=== PATIENT | male | born 1965 | race African-American/Black ===

== ENCOUNTER 2017-10-16 18:46 | Emergency (ER) | payer OTHER ==
--- OUTSIDE RECORDS SUMMARY | 2017-10-16 18:49 | XMS REPORT ---
:1965 Author Organization eClinicalWorks Care Team Providers Name Role Phone Peter Aden Provider Role Unavailable Allergies, Adverse Reactions, Alerts Substance Reaction Event Type NSAIDS hives Drug Allergy Problems Problem Type Condition Code Onset Dates Condition Status Assessment HTN (hypertension), benign I10 Active Problem BMI 45.0-49.9, adult Z68.42 Active Assessment Encounter for preventative adult Z00.01 Active health care exam with abnormal findings Problem Depression with anxiety F41.8 Active Problem Pain in right knee M25.561 Active Problem HTN (hypertension), benign I10 Active Problem GERD without esophagitis K21.9 Active Problem Constipation, unspecified K59.00 Active constipation type Problem Other chronic pain G89.29 Active Problem Tobacco use disorder F17.200 Active Assessment BMI 45.0-49.9, adult Z68.42 Active Assessment Other chronic pain G89.29 Active Assessment Depression with anxiety F41.8 Active Assessment Tobacco use disorder F17.200 Active Assessment GERD without esophagitis K21.9 Active Assessment Constipation, unspecified K59.00 Active constipation type Assessment Pain in right knee M25.561 Active Medications Medication Code Code Instructions Start End Date Status Dosage System Date Fluoxetine HCl ND 30910441886 20 MG Orally Active 1 capsule Once a day in the morning Nexium ND 49014118678 40 MG Orally Active 1 capsule Once a day Hydrocodone-Ac ND 59651051021 5-325 MG Orally September Active 1 tablet etaminophen Once a day as 2017 as needed needed for PAIN Latuda ND 65152120016 80 MG Orally Active 1 tablet Once a day with food Lactulose [facility] [address]-82 20 GM Orally Active 1 packet Once a day Lisinopril-Hyd ND 58238610373 20-12.5 MG Active 1 tablet rochlorothiazi Orally Twice a de day Results No Known Results Summary Purpose eClinicalWorks Submission
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
--- NOTE | 2017-10-16 19:49 | RAD REPORT ---
EXAM DESCRIPTION: RAD - Chest Pa And Lat (2 Views) - 10/16/2017 7:38 pm CLINICAL HISTORY: Trauma, chest pain COMPARISON: None. FINDINGS: The lungs are clear. The heart is normal in size. No displaced fractures. IMPRESSION: No acute or concerning finding suspected.
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
--- NOTE | 2017-10-16 21:19 | RAD REPORT ---
EXAM DESCRIPTION: MRI - C Spine Wo Cont CLINICAL HISTORY: Trauma, neck pain, radiculopathy COMPARISON: CT study 10/16/2017. FINDINGS: Examination is moderately degraded by motion artifact. Diminished T1 marrow signal is identified in the C3, C4 and C5 vertebral bodies. Mild elevated T2/IR signal is also seen within these vertebral bodies. There is evidence of subtle sclerosis on the CT ex amination performed earlier in these vertebral bodies as well. No acute fracture or subluxation is suspected. No traumatic marrow signal abnormality is observed. No prevertebral soft tissue swelling or fluid. No paraspinal mass or hematoma. Spondylosis with posterior disc/ osteophyte complexes noted, most prominent at C3-4 and C4-5 resultin g in central canal narrowing. IMPRESSION: Motion degraded study is submitted with no evidence of acute fracture or subluxation see n. Marrow signal abnormality as detailed involving this C3, C4 and C5 vertebral bodies with subtle scler osis noted on the recent CT scan at these levels. The findings could be related to underlying metabol ic conditions such as anemia. Blastic metastatic disease such as from prostate neoplasia is also in t he differential. Consider correlation with PSA levels. Moderate midcervical degenerative change with multilevel central canal narrowing present. Detail is d egraded by motion artifact.
[2017-10-16] MEDS ORDERED: HYDROCODONE/APAP 7.5/325 MG TAB ONE (21:46)
== END 2017-10-16 21:42 | disposition home or self-care (01) ==
LOC: ER 18:46
DX: S13.4XXA Sprain of ligaments of cervical spine, initial encounter (principal); V59.40XA Driver of pick-up truck or van injured in collision with unspecified motor vehicles in traffic accident, initial encounter; S20.219A Contusion of unspecified front wall of thorax, initial encounter; I10 Essential (primary) hypertension; F32.9 Major depressive disorder, single episode, unspecified; Z72.0 Tobacco use
CPT/HCPCS: 71046; 72125; 72141; 99285

== ENCOUNTER 2017-11-19 14:52 | Emergency (ER) | payer OTHER ==
[2017-11-19] MEDS ORDERED: ALBUTEROL 2.5 MG/3 ML NEB SOL ONE (15:37)
[2017-11-19] MEDS ORDERED: IPRATROPIUM BROM 0.5MG/2.5ML ONE (15:37)
--- NOTE | 2017-11-19 16:02 | RAD REPORT ---
EXAM DESCRIPTION: RAD - Chest Pa And Lat (2 Views) - 11/19/2017 3:37 pm CLINICAL HISTORY: Persistent cough, congestion, patient concern for TB COMPARISON: October 16 TECHNIQUE: PA and lateral views of the chest were obtained. FINDINGS: The lungs are slightly underinflated. Small granulomas are present. No focal infiltrate. I nterstitial markings are prominent. This is suspected to be baseline but could potentially mask a mata y early interstitial edema or infiltrate. Failure or volume overload are not suspected. Trachea is mi dline. Heart size is normal and central vasculature is within normal limits. No pleural effusion o r pneumothorax seen. No acute bony finding noted. No aortic abnormality. IMPRESSION: No peripheral mass or consolidation. Lung markings are prominent, accentuated by a slightly shallow inspiration. This could mask early int erstitial edema or infiltrate. No chest findings to suspect acute or prior TB.
--- NOTE | 2017-11-19 16:19 | ER ---
Nurse's Notes [facility] Name: Art Reid Age: 52 yrs Sex: Male : 1965 Arrival Date: 11/19/2017 Time: 14:53 Bed 11 Private MD: Diagnosis: Bronchitis, not specified as acute or chronic Presentation: 11/19 14:58 Presenting complaint: Patient states: I have had a cough, I smoke 3 cigarettes a day. ch cough has been there for 2 weeks. when I cough it hurts. I am worried I have TB. I get sweats some times. Transition of care: patient was not received from another setting of care. Onset of symptoms was November 05, 2017. Initial Sepsis Screen: Does the patient meet any 2 criteria? No. Patient's initial sepsis screen is negative. Does the patient have a suspected source of infection? No. Patient's initial sepsis screen is negative. Care prior to arrival: None. 14:58 Method Of Arrival: Ambulatory 14:58 Acuity: MIKE 5 Triage Assessment: 15:02 General: Appears in no apparent distress. uncomfortable, Behavior is cooperative, ch appropriate for age, anxious. Historical: - Allergies: 15:00 tolmetin sodium; ch - Home Meds: 15:00 Fluoxetine Oral [Active]; Lactulose Oral [Active]; Latuda 80 mg Oral tab 1 tab once ch daily [Active]; lisinopril-hydrochlorothiazide 20-12.5 mg Oral tab 1 tab once daily [Active]; 15:04 "i form 500mg twice a day for diabetes" [Active]; ch - PMHx: 15:00 Depression; Hypertension; 15:04 Diabetes - NIDDM; - PSHx: 15:00 abdominal surgery; - Immunization history:: Adult Immunizations up to date. - Social history:: Smoking status: Patient/guardian denies using tobacco. Screenin:13 Abuse screen: Denies threats or abuse. Denies injuries from another. Nutritional ed1 screening: No deficits noted. Tuberculosis screening: Never had TB. Possible symptoms: cough for more than 2 weeks, Risk factors: None Intervention for positive screen: ED Physician notified, no new orders received. Fall Risk None identified. Assessment: 15:13 General: Appears in no apparent distress. Behavior is calm, cooperative. Pain: Denies ed1 pain. Neuro: Level of Consciousness is awake, alert, obeys commands, Oriented to person, place, time, situation. Cardiovascular: Denies chest pain, Heart tones S1 S2 present. Respiratory: Reports cough that is productive, persistent pain with cough Airway is patent Respiratory effort is even, unlabored, Respiratory pattern is regular, symmetrical, Sputum is thick, clear Breath sounds are clear bilaterally. GI: No signs and/or symptoms were reported involving the gastrointestinal system. : No signs and/or symptoms were reported regarding the genitourinary system. EENT: No signs and/or symptoms were reported regarding the EENT system. Derm: Skin is intact, is healthy with good turgor, Skin is dry, Skin is normal, Skin temperature is warm. Musculoskeletal: Circulation, motion, and sensation intact. 15:13 Reassessment: I agree with assessment completed by CHERYLE Barrera . aa5 16:08 Reassessment: Patient appears in no apparent distress at this time. Patient and/or ed1 family updated on plan of care and expected duration. Pain level reassessed. Patient is alert, oriented x 3, equal unlabored respirations, skin warm/dry/pink. Patient states feeling better. Patient states symptoms have improved. Vital Signs: 15:00 BP 147 / 98; Pulse 74; Resp 16; Temp 97.4; Pulse Ox 98% on R/A; ch 15:03 Weight 133.81 kg; Height 5 ft. 7 in. (170.18 cm); ch 16:08 BP 138 / 87; Pulse 95; Resp 18; Pulse Ox 100% on R/A; Pain 2/10; ed1 15:03 Body Mass Index 46.20 (133.81 kg, 170.18 cm) ED Course: 14:53 Patient arrived in ED. sb2 14:59 Triage completed. ch 15:00 Arm band placed on left wrist. Patient placed in an exam room. ch 15:03 Malu Bianchi FNP-C is [facility]. kb 15:03 Oswaldo Bustillos MD is Attending Physician. kb 15:12 Holly Fournier LVN is Primary Nurse. ed1 15:13 Patient has correct armband on for positive identification. Call light in reach. ed1 15:28 Patient moved to radiology via wheelchair. jb2 15:29 Chest Pa And Lat (2 Views) XRAY In Process Unspecified. EDMS 15:32 X-ray completed. Patient tolerated procedure well. jb2 15:39 Patient moved back from radiology. jb2 16:09 Resting quietly. Awaiting disposition. ed1 16:25 No provider procedures requiring assistance completed. Patient did not have IV access ed1 during this emergency room visit. Administered Medications: 15:43 Drug: DuoNeb (3:1) (2.5 mg - 0.5 mg) 3 ml Route: Nebulizer; ed1 16:26 Follow up: Response: No adverse reaction; Marked relief of symptoms ed1 Outcome: 16:18 Discharge ordered by . marilyn 16:25 Discharged to home ambulatory. ed1 16:25 Condition: good 16:25 Discharge instructions given to patient, Instructed on discharge instructions, follow up and referral plans. medication usage, Demonstrated understanding of instructions, follow-up care, medications, Prescriptions given X 1. 16:26 Patient left the ED. ed1 Signatures: Dispatcher [employer] EDTN Malu Bianchi, LEAD SQL DEVELOPER-C LEAD SQL DEVELOPER-Gabriela Mathew, RN RN Boni Singh jb2 Mili Napoles, RN RN aa5 Holly Fournier, GOLF COURSE MECHANIC GOLF COURSE MECHANIC ed1 Jaye Donaldson sb2 Corrections: (The following items were deleted from the chart) 15:01 14:58 Presenting complaint: Patient states: I have had a cough, I smoke 3 cigaretts a ch day. cough has been there for 2 weeks ch
--- NOTE | 2017-11-19 16:19 | EDPHYS ---
Physician Documentation [facility] Name: Art Reid Age: 52 yrs Sex: Male : 1965 Arrival Date: 11/19/2017 Time: 14:53 Bed 11 Private MD: ED Physician Oswaldo Bustillos HPI: 11/19 15:13 This 52 yrs old Black Male presents to ER via Ambulatory with complaints of TB TEST. kb 15:13 The patient or guardian reports cough, that is intermittent, described as moderate, kb with productive sputum. Onset: The symptoms/episode began/occurred 3 week(s) ago. Severity of symptoms: At their worst the symptoms were moderate, in the emergency department the symptoms are unchanged. Modifying factors: The symptoms are alleviated by nothing, the symptoms are aggravated by nothing. Associated signs and symptoms: Pertinent positives: fever, Pertinent negatives: chest pain, diarrhea, ear ache, nausea, rhinorrhea, sore throat, vomiting. The patient has not experienced similar symptoms in the past. The patient has not recently seen a physician. Pt states he has had a cough for a couple of weeks. States cough is worse when he lays on his right side. States he saw something on the news this morning that said if he had a cough and sweats it was probably TB so he came to get checked for that. States he has had intermittent fever and sweats. Reports he was probably around someone that had TB and that's how he was exposed, but he doesn't know if he was for sure because "they aren't going to tell you if they have it.". Historical: - Allergies: 15:00 tolmetin sodium; ch - Home Meds: 15:00 Fluoxetine Oral [Active]; Lactulose Oral [Active]; Latuda 80 mg Oral tab 1 tab once ch daily [Active]; lisinopril-hydrochlorothiazide 20-12.5 mg Oral tab 1 tab once daily [Active]; 15:04 "i form 500mg twice a day for diabetes" [Active]; ch - PMHx: 15:00 Depression; Hypertension; ch 15:04 Diabetes - NIDDM; ch - PSHx: 15:00 abdominal surgery; ch - Immunization history:: Adult Immunizations up to date. - Social history:: Smoking status: Patient/guardian denies using tobacco. ROS: 15:12 ENT: Negative for injury, pain, and discharge, Neck: Negative for injury, pain, and kb swelling, Cardiovascular: Negative for chest pain, palpitations, and edema, Abdomen/GI: Negative for abdominal pain, nausea, vomiting, diarrhea, and constipation, Back: Negative for injury and pain, : Negative for injury, bleeding, discharge, and swelling, MS/Extremity: Negative for injury and deformity, Skin: Negative for injury, rash, and discoloration, Neuro: Negative for headache, weakness, numbness, tingling, and seizure. 15:12 Constitutional: Positive for fever, Negative for body aches, chills, fatigue, malaise, poor PO intake, weight loss. 15:12 Respiratory: Positive for cough, with yellow sputum, Negative for dyspnea on exertion, hemoptysis, orthopnea, pleurisy, shortness of breath, sputum production, wheezing. Exam: 15:12 Constitutional: This is a well developed, well nourished patient who is awake, alert, kb and in no acute distress. Head/Face: Normocephalic, atraumatic. ENT: Nares patent. No nasal discharge, no septal abnormalities noted. Tympanic membranes are normal and external auditory canals are clear. Oropharynx with no redness, swelling, or masses, exudates, or evidence of obstruction, uvula midline. Mucous membranes moist. Neck: Trachea midline, no thyromegaly or masses palpated, and no cervical lymphadenopathy. Supple, full range of motion without nuchal rigidity, or vertebral point tenderness. No Meningismus. Chest/axilla: Normal chest wall appearance and motion. Nontender with no deformity. No lesions are appreciated. Cardiovascular: Regular rate and rhythm with a normal S1 and S2. No gallops, murmurs, or rubs. Normal PMI, no JVD. No pulse deficits. Abdomen/GI: Soft, non-tender, with normal bowel sounds. No distension or tympany. No guarding or rebound. No evidence of tenderness throughout. Back: No spinal tenderness. No costovertebral tenderness. Full range of motion. Skin: Warm, dry with normal turgor. Normal color with no rashes, no lesions, and no evidence of cellulitis. MS/ Extremity: Pulses equal, no cyanosis. Neurovascular intact. Full, normal range of motion. Neuro: Awake and alert, GCS 15, oriented to person, place, time, and situation. Cranial nerves II-XII grossly intact. Motor strength 5/5 in all extremities. Sensory grossly intact. Cerebellar exam normal. Normal gait. 15:12 Respiratory: the patient does not display signs of respiratory distress, Respirations: normal, Breath sounds: rhonchi, that are moderate, are heard in the right lower lobe and right posterior lower lobe. Vital Signs: 15:00 BP 147 / 98; Pulse 74; Resp 16; Temp 97.4; Pulse Ox 98% on R/A; ch 15:03 Weight 133.81 kg; Height 5 ft. 7 in. (170.18 cm); ch 16:08 BP 138 / 87; Pulse 95; Resp 18; Pulse Ox 100% on R/A; Pain 2/10; ed1 15:03 Body Mass Index 46.20 (133.81 kg, 170.18 cm) ch MDM: 15:04 Patient medically screened. kb 15:12 Data reviewed: vital signs, nurses notes. Data interpreted: Pulse oximetry: on room air kb is 98 %. Interpretation: normal. 16:03 Counseling: I had a detailed discussion with the patient and/or guardian regarding: the kb historical points, exam findings, and any diagnostic results supporting the discharge/admit diagnosis, radiology results, the need for outpatient follow up, a family practitioner, to return to the emergency department if symptoms worsen or persist or if there are any questions or concerns that arise at home. 11/19 15:04 Order name: Chest Pa And Lat (2 Views) XRAY; Complete Time: 16:03 kb Administered Medications: 15:43 Drug: DuoNeb (3:1) (2.5 mg - 0.5 mg) 3 ml Route: Nebulizer; ed1 16:26 Follow up: Response: No adverse reaction; Marked relief of symptoms ed1 Disposition: 22:33 Co-signature as Attending Physician, Oswaldo Bustillos MD I agree with the assessment and kdr plan of care. Disposition: 11/19/17 16:18 Discharged to Home. Impression: Bronchitis, not specified as acute or chronic. - Condition is Stable. - Discharge Instructions: Acute Bronchitis, [id number]. - Prescriptions for Albuterol Sulfate 90 mcg/actuation - inhale 1-2 puff by INHALATION route every 4-6 hours; 1 Inhaler. - Medication Reconciliation Form, Thank You Letter, Antibiotic Education, Prescription Opioid Use form. - Follow up: Emergency Department; When: As needed; Reason: Worsening of condition. Follow up: Private Physician; When: 2 - 3 days; Reason: Recheck today's complaints, Continuance of care, Re-evaluation by your physician. Signatures: Dispatcher [employer] EDMS Malu Bianchi, RUPERTO-C DIRECTOR [employer]-Gabriela Mathew, ASMITA RN Oswaldo Bustillos MD MD [facility] Holly Fournier LVN PROJECT LEADER ed1 Corrections: (The following items were deleted from the chart) 16:26 16:18 11/19/2017 16:18 Discharged to Home. Impression: Bronchitis, not specified as ed1 acute or chronic. Condition is Stable. Forms are Medication Reconciliation Form, Thank You Letter, Antibiotic Education, Prescription Opioid Use. Follow up: Emergency Department; When: As needed; Reason: Worsening of condition. Follow up: Private Physician; When: 2 - 3 days; Reason: Recheck today's complaints, Continuance of care, Re-evaluation by your physician. kb
== END 2017-11-19 16:26 | disposition home or self-care (01) ==
LOC: ER 14:52
DX: J40 Bronchitis, not specified as acute or chronic (principal); I10 Essential (primary) hypertension; E11.9 Type 2 diabetes mellitus without complications; F32.9 Major depressive disorder, single episode, unspecified; Z88.8 Allergy status to other drugs, medicaments and biological substances
CPT/HCPCS: 71046; 94640; 99284

== ENCOUNTER 2018-08-20 07:07 | Day surgery (SDC) | payer OTHER ==
--- OUTSIDE RECORDS SUMMARY | 2018-08-20 07:13 | XMS REPORT | Continuity of Care Document ---
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 HEMATOLOGY Hct 30.0 % 42.0 - 07/18 54.0 [facility] HEMATOLOGY RDW 12.6 % 11.5 - 07/18 14.5 [facility] HEMATOLOGY MCHC 33.0 g/dL 32.0 - 07/18 36.0 [facility] HEMATOLOGY MCV 85.4 fL 80.0 - 07/18 94.0 [facility] HEMATOLOGY MCH 28.2 pg 27.0 - 07/18 31.0 [facility] HEMATOLOGY Hgb 9.9 g/dL 14.0 - 07/18 [facility] HEM[facility]OLOGY WBC 7.9 K/CMM 3.7 - 10.4 07/18 [facility] HEMATOLOGY RBC 3.51 M/CMM 4.70 - 07/18 6. [facility] HEMATOLOGY Lymphocytes 1.9 K/CMM 1.0 - 5.5 07/18 /2014 [facility] HEMATOLOGY Eosinophils 0.1 K/CMM 0.0 - 0.5 07/18 [facility] HEMATOLOGY Monocytes 7.9 % 2.0 - 12.0 07/18 [facility] HEMATOLOGY Lymphocytes 24.0 % 20.0 - 07/18 40.0 [facility] HEMATOLOGY Segs-Bands # 5.2 K/CMM 1.5 - 8.1 07/18 [facility] HEMATOLOGY Monocytes # 0.6 K/CMM 0.0 - 0.8 07/18 [facility] HEMATOLOGY Segs 66.0 % 45.0 - 07/18 75.0 [facility] HEMATOLOGY Basophils 0.4 % 0.0 - 1.0 07/18 [facility] HEMATOLOGY Eosinophils 1.7 % 0.0 - 4.0 07/18 [facility] HEMATOLOGY WBC 12.7 K/CMM 3.7 - 10.4 07/17 [facility] HEMATOLOGY Hgb 10.0 g/dL 14.0 - 07/17 18.0 [facility] HEMATOLOGY RBC 3.34 M/CMM 4.70 - 07/17 6.10 [facility] HEMATOLOGY Platelet 437 K/CMM 133 - 450 07/17 [facility] HEMATOLOGY MPV 7.4 fL 7.4 - 10.4 07/17 [facility] HEMATOLOGY MCH 29.9 pg 27.0 - 07/17 31.0 [facility] HEMATOLOGY Hct 28.8 % 42.0 - 07/17 54.0 [facility] HEMATOLOGY MCV 86.3 fL 80.0 - 07/17 94.0 [facility] HEMATOLOGY MCHC 34.6 g/dL 32.0 - 07/17 36.0 [facility] HEMATOLOGY RDW 12.5 % 11.5 - 07/17 14.5 /2014 [facility] HEMATOLOGY Segs 69.7 % 45.0 - 07/17 [place] 75.0 /2014 [facility] HEMATOLOGY Lymphocytes 20.3 % 20.0 - 07/17 [place] 40.0 /2014 [facility] HEMATOLOGY Eosinophils 0.2 K/CMM 0.0 - 0.5 07/17 [facility] /2014 [facility] HEMATOLOGY Monocytes # 1.0 K/CMM 0.0 - 0.8 07/17 [facility] [address] [place] [address] HEMATOLOGY Basophils # 0.1 K/CMM 0.0 - 0.2 07/17 [facility] /[address] [place] [address] HEMATOLOGY Lymphocytes 2.6 K/CMM 1.0 - 5.5 07/17 [facility] /2014 [facility] HEMATOLOGY Eosinophils 1.6 % 0.0 - 4.0 07/[address] HEMATOLOGY Basophils 0.4 % 0.0 - 1.0 07/[address] [place] [address] HEMATOLOGY Segs-Bands # 8.9 K/CMM 1.5 - 8.1 07/17 [facility] [address] [place] [address] HEMATOLOGY Monocytes 8.0 % 2.0 - 12.0 07/17 [facility] [address] [place] [address] URINE AND UA <=1.0 0.1 - 1.0 07/16 [facility] Urobilinogen mg/dL [facility] URINE AND Micro? Not Indicated 07/16 [facility] *NA* Center (07/16/14 12:47 PM) URINE AND UA RBC 1 /HPF 0 - 2 07/[address] URINE AND UA Turbidity Clear Clear 07/16 [facility] (07/16/14 12:47 PM) [place] URINE AND UA pH 5.5 5.0 - 8.0 07/16 [facility] [address] [place] [address] URINE AND UA Protein Negative Negative 07/16 [facility] mg/dL mg/dL [address] [place] [address] URINE AND UA Spec Grav 1.011 <=1.030 07/[address] URINE AND UA Glucose Negative Negative 07/16 [facility] mg/dL mg/dL [address] [place] [address] URINE AND UA Color Yellow Yellow 07/16 [facility] [address] [place] [address] *NA* [place] (07/16/14 12:47 PM) URINE AND UA Ketones Negative Negative 07/16 [facility] mg/dL mg/dL [facility] URINE AND UA Sq Epi Many /LPF Few /LPF 07/16 [facility] URINE AND UA Leuk Est Negative Negative 07/16 [facility] (07/16/14 12:47 PM) [place] URINE AND UA Nitrite Negative Negative 07/16 [facility] (07/16/14 12:47 PM) [place] URINE AND UA Blood Negative Negative 07/16 [facility] (07/16/14 12:47 PM) [place] URINE AND UA Bili Negative Negative 07/16 [facility] *NA* Center (07/16/14 12:47 PM) URINE AND UA Amorph Occasional None Seen 07/16 [facility] Bria /HPF /HPF [facility] URINE AND UA Mucus Few /LPF None Seen 07/16 [facility] STOOL /LPF /2014 [facility] URINE AND UA Bacteria Occasional None Seen 07/16 [facility] /HPF /HPF /[address] [place] [address] URINE AND UA WBC 3 /HPF 0 - 5 07/[address] [facility]2014 [facility] CHEM PANEL Phosphorus 4.3 mg/dL 2.5 - 4.5 07/[address] CHEM PANEL Magnesium 2.0 mg/dL 1.8 - 2.4 07/16 [facility] Lvl [facility] ELECTROLYTE AGAP 11.1 meq/L 10.0 - 07/16 [facility] 20.0 [facility] ELECTROLYTE eGFR 102 07/16 1Result Comment: The eGFR is calculated using the CKD-EPI formula. In most young, healthy individuals the eGFR will be > 90 mL/min/1.73m2. The eGFR declines with age. An eGFR of 60-89 may be normal in [facility] mL/min/1.7 /2014 some populations, particularly the elderly, for whom the CKD-EPI formula has not been extensively validated. Use of the eGFR is not recommended in the following populations: [place] [address] Center Individuals with unstable creatinine concentrations, including patients and those with serious co-morbid conditions. Patients with extremes in muscle mass or diet. The data above are obtained from the National Kidney Disease Education Program (NKDEP) which additionally recommends that when the eGFR is used in patients with extremes of body mass index for purposes of drug dosing, the eGFR should be multiplied by the estimated BMI. ELECTROLYTE Sodium Lvl 138 meq/L 135 - 145 07/16 [facility] ELECTROLYTE CO2 26 meq/L 24 - 32 07/16 [facility] ELECTROLYTE Creatinine 1.0 mg/dL 0.5 - 1.4 07/16 [facility] ELECTROLYTE BUN 10 mg/dL 7 - 22 07/16 [facility] ELECTROLYTE Glucose Lvl 98 mg/dL 70 - 99 07/16 4Interpretive Data: Adult reference range values reflect the clinical guidelines [facility] of the [employer]. [facility] ELECTROLYTE Potassium 4.1 meq/L 3.5 - 5.1 07/16 [facility] ELECTROLYTE Chloride Lvl 105 meq/L 95 - 109 07/16 [facility] ELECTROLYTE Calcium Lvl 9.1 mg/dL 8.5 - 10.5 07/16 [facility] HEMATOLOGY Platelet 383 K/CMM 133 - 450 07/16 [facility] HEMATOLOGY MPV 7.1 fL 7.4 - 10.4 07/16 [facility] HEMATOLOGY MCH 29.2 pg 27.0 - 07/16 31.0 [facility] HEMATOLOGY MCHC 34.3 g/dL 32.0 - 07/16 36.0 [facility] HEMATOLOGY RDW 12.4 % 11.5 - 07/16 14.5 [facility] HEMATOLOGY WBC 13.8 K/CMM 3.7 - 10.4 07/16 [facility] HEMATOLOGY RBC 3.45 M/CMM 4.70 - 07/16 6.10 [facility] HEMATOLOGY Hgb 10.1 g/dL 14.0 - 07/16 18.0 [facility] HEMATOLOGY Hct 29.4 % 42.0 - 07/16 54.0 [facility] HEMATOLOGY MCV 85.0 fL 80.0 - 07/16 94.0 [facility] HEMATOLOGY Segs 74.5 % 45.0 - 07/16 75.0 [facility] HEMATOLOGY Lymphocytes 17.1 % 20.0 - 07/16 40.0 [facility] HEMATOLOGY Basophils 0.3 % 0.0 - 1.0 07/16 [facility] HEMATOLOGY Monocytes 7.1 % 2.0 - 12.0 07/[address] HEMATOLOGY Eosinophils 1.0 % 0.0 - 4.0 07/[address] HEMATOLOGY Segs-Bands # 10.2 K/CMM 1.5 - 8.1 07/[address] HEMATOLOGY Lymphocytes 2.4 K/CMM 1.0 - 5.5 07/[address] HEMATOLOGY Monocytes # 1.0 K/CMM 0.0 - 0.8 07/[address] HEMATOLOGY Eosinophils 0.1 K/CMM 0.0 - 0.5 07/16 [facility] PARATHYROID Ca Ion WB 1.14 . - 07/16 [facility] PROFILE mMol/L 1. [facility] PARATHYROID Ca Norm WB 1.12 . - 07/16 [facility] PROFILE mMol/L . [facility] Chest 1view Chest 1view PORTABLE CHEST 2014-07-16 09:48:00 07/16 - [facility] [address] [place] [address] COMPARISON: Yesterday Read by: Nico Parra MD Dictated Date/time: 07/16/14 10:11 Electronically Signed by: Nico Parra 07/16/14 10:12 FINAL REPORT CLINICAL INDICATION: Abnormal chest sounds IMPRESSION: Stable positioning of the tracheostomy tube. Stable cardiac silhouette. Interval improvement in lung aeration with interval decrease in the bilateral lower lobe subsegmental atelectasis. There is no pleural effusion. No pneumothorax is identified, however, a semierect film is suboptimal for that determination. An erect film of the chest is suggested in order to more accurately exclude a pneumothorax. CHEM PANEL Magnesium 2.1 mg/dL 1.8 - 2.4 07/15 [facility] Lvl [facility] CHEM PANEL Phosphorus 4.1 mg/dL 2.5 - 4.5 07/[address] ELECTROLYTE AGAP 13.5 meq/L 10.0 - 07/15 [facility] S 20.0 [facility] ELECTROLYTE eGFR 102 07/15 2Result Comment: The eGFR is calculated using the CKD-EPI formula. In most young, healthy individuals the eGFR will be > 90 mL/min/1.73m2. The eGFR declines with age. An eGFR of 60-89 may be normal in [facility] mL/min/1.7 /2014 some populations, particularly the elderly, for whom the CKD-EPI formula has not been extensively validated. Use of the eGFR is not recommended in the following populations: [address] Individuals with unstable creatinine concentrations, including patients and those with serious co-morbid conditions. Patients with extremes in muscle mass or diet. The data above are obtained from the National Kidney Disease Education Program (NKDEP) which additionally recommends that when the eGFR is used in patients with extremes of body mass index for purposes of drug dosing, the eGFR should be multiplied by the estimated BMI. ELECTROLYTE CO2 26 meq/L 24 - 32 07/[address] ELECTROLYTE Potassium 4.5 meq/L 3.5 - 5.1 07/[address] ELECTROLYTE Sodium Lvl 140 meq/L 135 - 145 07/[address] ELECTROLYTE Calcium Lvl 9.1 mg/dL 8.5 - 10.5 07/[address] ELECTROLYTE Chloride Lvl 105 meq/L 95 - 109 07/[address] ELECTROLYTE Creatinine 1.0 mg/dL 0.5 - 1.4 07/[address] ELECTROLYTE Glucose Lvl 104 mg/dL 70 - 99 07/15 5Interpretive Data: Adult reference range values reflect the clinical guidelines [place] [address] of the [employer]. [facility] ELECTROLYTE BUN 13 mg/dL 7 - 22 07/[address] PARATHYROID Ca Ion WB 1.22 1.05 - 07/15 [facility] PROFILE mMol/L 1.25 [facility] PARATHYROID Ca Norm WB 1.17 1.05 - 07/15 [facility] PROFILE mMol/L 1. [facility] Chest 1view Chest 1view EXAM: CHEST 1 VIEW 07/15 - [place] [id number] - Medical This report was dictated by a Senior Enlisted Advisor/Fellow. I have personally reviewed the images as Center well as the Resident's interpretation and agree with the findings. DATE: July 15, 2014 at 0829 Read by: Raysa Winston MD Resident: Raysa Winston MD Dictated Date/time: 07/15/14 10:18 Electronically Signed by: Nico Parra 07/15/14 11:57 FINAL REPORT INDICATION: Crackles COMPARISON: Chest 1 view on July 14, 2014 at 0737 TECHNIQUE: A single portable semierect radiograph of the chest was obtained. FINDINGS: A tracheostomy tube is unchanged in position. There is stable platelike atelectasis at the right lung base. The remainder of the lungs are clear without focal consolidation or evidence of pleural effusion. The cardiomediastinal silhouette is unchanged. IMPRESSION: Stable right basilar platelike atelectasis. CHEM PANEL Phosphorus 3.7 mg/dL 2.5 - 4.5 07/[address] CHEM PANEL Magnesium 2.2 mg/dL 1.8 - 2.4 07/14 [facility]2014 [facility] CHEM PANEL eGFR 121 07/14 3Result Comment: The eGFR is calculated using the CKD-EPI formula. In most young, healthy individuals the eGFR will be > 90 mL/min/1.73m2. The eGFR declines with age. An eGFR of 60-89 may be normal in [facility] mL/min/1.7 some populations, particularly the elderly, for whom the CKD-EPI formula has not been extensively validated. Use of the eGFR is not recommended in the following populations: [address] Individuals with unstable creatinine concentrations, including patients and those with serious co-morbid conditions. Patients with extremes in muscle mass or diet. The data above are obtained from the National Kidney Disease Education Program (NKDEP) which additionally recommends that when the eGFR is used in patients with extremes of body mass index for purposes of drug dosing, the eGFR should be multiplied by the estimated BMI. CHEM PANEL Calcium Lvl 8.8 mg/dL 8.5 - 10.5 07/[address] CHEM PANEL Chloride Lvl 105 meq/L 95 - 109 07/[address] CHEM PANEL AGAP 14.7 meq/L 10.0 - 07/14 [facility] 20.0 [facility] CHEM PANEL CO2 24 meq/L 24 - 32 07/[address] CHEM PANEL Creatinine 0.8 mg/dL 0.5 - 1.4 07/[address] CHEM PANEL Potassium 4.7 meq/L 3.5 - 5.1 07/14 [facility] [address] [place] [address] CHEM PANEL Sodium Lvl 139 meq/L 135 - 145 07/[address] CHEM PANEL BUN 14 mg/dL 7 - 22 07/[address] CHEM PANEL Glucose Lvl 73 mg/dL 70 - 99 07/14 6Interpretive Data: Adult reference range values reflect the clinical guidelines of the [employer]. [facility] HEMATOLOGY Basophils # 0.1 K/CMM 0.0 - 0.2 07/14 [facility]2014 [facility] PARATHYROID Ca Norm WB 1.12 .05 - 07/14 [facility] PROFILE mMol/L 1. [facility] PARATHYROID Ca Ion WB 1.12 .05 - 07/14 [facility] PROFILE mMol/L 1. [facility] Chest 1view Chest 1view PORTABLE CHEST 2014-07-14 08:18:00 07/14 - [facility] COMPARISON: Yesterday Read by: Nico Parra MD Dictated Date/time: 07/14/14 09:41 Electronically Signed by: Nico Parra 07/14/14 09:42 FINAL REPORT CLINICAL INDICATION: Abnormal chest sounds DISCUSSION: Stable tracheostomy tube. Stable cardiac silhouette. Right basilar platelike atelectasis. No pleural effusion or pneumothorax. TOXICOLOGY [place] Tr TND 2100 07/[address] TOXICOLOGY V[place] Tr 16.3 ug/ml 07/14 9Interpretive Data: Therapeutic Range: Trough: 10 - 20 ug/mL [facility] Peak: 20 - 40 ug/mL Center Potential Toxicity: >80 ug/mL Chest 1view Chest 1view Portable ap semierect chest 07/13/201407/13 - [facility] HISTORY: Abnormal chest sounds. Comparison is made with yesterday. Read by: Anette Coto MD Dictated Date/time: 07/13/14 10:36 Electronically Signed by: Anette Coto MD 07/13/14 11:42 FINAL REPORT FINDINGS: The gastric tube has been removed. Cardiomediastinal silhouette and tracheostomy are stable. There is platelike atelectasis at both lung bases. The upper lungs are clear. CONCLUSION: The gastric tube has been removed. TOXICOLOGY Vanco Lvl 10.8 ug/ml 07/12 8Interpretive Data: Therapeutic Range: Trough: 10 - 20 ug/mL [facility] Peak: 20 - 40 ug/mL Center Potential Toxicity: >80 ug/mL HEMATOLOGY Basophils # 0.1 K/CMM 0.0 - 0.2 07/12 [facility] Chest 1view Chest 1view EXAM: CHEST 1 VIEW 07/12 - [facility] This report was dictated by a Senior Enlisted Advisor/Fellow. I have personally reviewed the images as Center well as the Resident's interpretation and agree with the findings. DATE: July 12, 2014 at 0907 Read by: Raysa Winston MD Resident: Raysa Winston MD Dictated Date/time: 07/12/14 10:30 Electronically Signed by: Nico Parra 07/12/14 12:39 FINAL REPORT INDICATION: Abnormal chest sounds COMPARISON: Chest one view on July 11, 2014 at 0756 TECHNIQUE: A single portable semierect radiograph of the chest was obtained. FINDINGS: Support lines and tubes are stable in position. There is unchanged appearance of right infrahilar and bibasilar airspace opacities which could be due to evolving aspiration, infection or atelectasis. Mild elevation of the right hemidiaphragm is uncha nged. There is no definite blunting of the costophrenic sulci to suggest the presence of pleural effusions. The cardiomediastinal silhouette is unchanged. IMPRESSION: Unchanged right infrahilar and bibasilar airspace opacities which could be due to evolving aspiration, infection or atelectasis. Chest 1view Chest 1view PORTABLE CHEST 2014-07-11 08:11:00 07/11 - [facility] COMPARISON: Yesterday Read by: Nico Parra MD Dictated Date/time: 07/11/14 10:02 Electronically Signed by: Nico Parra 07/11/14 10:03 FINAL REPORT CLINICAL INDICATION: Abnormal chest sounds DISCUSSION: Stable life support lines and tubes. Stable cardiac silhouette. Right infrahilar and basilar airspace opacities, could be from evolving aspiration , atelectasis or infection. These findings were better seen on CT chest performed on 07/05/2014. There is mild elevatio n of the right hemidiaphragm. No pneumothorax is identified, however, a supine film is suboptimal for that determination. An erect film of the chest is suggested in order to more accurately exclude a pneumothorax. CONCLUSION: There has been no significant interval change in the radiographic appearance of the chest when compared to prior radiograph. TOXICOLOGY Vanco Tr TND 2100 07/11 [facility] TOXICOLOGY V[place] Tr 2.1 ug/ml 07/11 10Interpretive Data: Therapeutic Range: Trough: 10 - 20 ug/mL [facility] Peak: 20 - 40 ug/mL [place] Potential Toxicity: >80 ug/mL Chest 1view Chest 1view EXAM: XR CHEST 1 VIEW 07/10 - [facility] - [facility] INDICATION: Abnormal chest sounds Read by: Saud Castañeda MD Dictated Date/time: 07/10/14 21:49 Electronically Signed by: Saud Castañeda MD 07/10/14 21:50 FINAL REPORT COMPARISON: 07/09/2014 at 1012 hours TECHNIQUE: Single AP view of the chest DISCUSSION: Tracheostomy, nasogastric tube show stable positioning. There is a shallow depth of inspiration with bibasilar atelectasis. The cardiomediastinal silhouette is stable. No evidence for pneumo thorax within the limitation of a semiupright exam. IMPRESSION: Platelike atelectasis in the lower lobes. Low lung volumes. URINE AND UA Glucose Negative Negative 07/10 [facility] mg/dL mg/dL [facility] URINE AND UA Protein 50 mg/dL Negative 07/10 [facility] mg/dL /2013 [facility] URINE AND UA 8.0 mg/dL 0.1 - 1.0 07/10 [facility] Urobilinogen /2013 [facility] URINE AND UA Blood Negative Negative 07/10 [facility] (07/09/14 6:15 PM) [place] URINE AND UA Bili Negative Negative 07/10 [facility] *NA* [place] (07/09/14 6:15 PM) URINE AND UA pH 6.0 5.0 - 8.0 07/10 [facility] URINE AND UA Spec Grav 1.028 <=1.030 07/10 [facility] URINE AND UA Turbidity Clear Clear 07/10 [facility] (07/09/14 6:15 PM) [place] URINE AND UA Color Yellow Yellow 07/10 [facility] *NA* [place] (07/09/14 6:15 PM) URINE AND UA Nitrite Negative Negative 07/10 [facility] (07/09/14 6:15 PM) [place] URINE AND UA RBC 6 /HPF 0 - 2 07/10 [facility] URINE AND UA WBC 3 /HPF 0 - 5 07/10 [facility] URINE AND UA Sq Epi Many /LPF Few /LPF 07/10 [facility] URINE AND UA Leuk Est Negative Negative 07/10 [facility] (07/09/14 6:15 PM) [place] URINE AND UA Mucus Few /LPF None Seen 07/10 [facility] /[facility] URINE AND UA Bacteria Occasional None Seen 07/10 [facility] /HPF /HPF [facility] URINE AND UA Ketones TR 07/10 [facility] Chest 1view Chest 1view EXAM: XR CHEST 1 VIEW 07/09 - [facility] INDICATION: Abnormal chest sounds Read by: Saud Castañeda MD Dictated Date/time: 07/09/14 14:29 Electronically Signed by: Saud Castañeda MD 07/09/14 14:30 FINAL REPORT COMPARISON: 07/08/2014 at 0846 TECHNIQUE: Single AP view of the chest DISCUSSION: Stable positioning of tracheostomy and nasogastric tube. Patchy alveolar opacities are seen, greatest in the bilateral lung bases, which may represent pneumonia and/or atelectasis. Heart is prominent in size. IMPRESSION: Overall stable findings compatible with atelectasis or pneumonia. Chest 1view Chest 1view Chest one view, JULY 08, 2014 at 8:46 a.m. - [facility] HISTORY: 47-year-old man with abnormal chest sounds. Read by: Mabel Ortega MD Dictated Date/time: 07/08/14 14:26 Electronically Signed by: Mabel Ortega MD 07/08/14 15:22 FINAL REPORT FINDINGS: Comparison is made to yesterday. The cardiomediastinal silhouette is stable. Subsegmental atelectasis is seen in both lower lobes. No pleural effusions are identified. The Dobbhoff feeding tube has been replaced by a nasogastric tube. The tracheostomy tube remains in place. IMPRESSION: Bilateral lower lobe platelike atelectasis. Abdomen AP Abdomen AP INDICATION: Tube placement. 07/07 [facility] view view /2013 [facility] PROCEDURE: Abdomen, one view. Read by: Gage Hu MD Dictated Date/time: 07/08/14 08:18 Electronically Signed by: Gage Hu MD 07/08/14 08:19 FINAL REPORT FINDINGS: The tip of an NG tube is in the right abdomen near the pylorus in the proximal port is in the distal stomach. Gastric air bubble is only moderately-minimally distended. Visualized large and small bowel loops are unremarkable. IMPRESSION: 1. The feeding tube tip is in the distal stomach. Chest 1view Chest 1view CHEST ONE VIEW, JULY 07, 2014 AT 1:15 A.M. [facility]2013 [facility] HISTORY: 47-year-old man with abnormal chest sounds. Read by: Mabel Ortega MD Dictated Date/time: 07/07/14 11:18 Electronically Signed by: Mabel Ortega MD 07/07/14 12:00 FINAL REPORT FINDINGS: Comparison is made to July 06. The lungs are low in volume with increased bibasilar subsegmental atelectasis. The costophrenic sulci are sharp, without effusions. The cardiomediastinal silhouette is spuriously widened from the low mary ng volumes. Life support lines and tubes are stable. IMPRESSION: Abundant bibasilar subsegmental atelectasis has increased since yesterday morning. Chest 1view Chest 1view EXAM: CHEST 1 VIEW 07/06 [facility] /2013 [facility] This report was dictated by a Senior Enlisted Advisor/Fellow. I have personally reviewed the images as Center well as the Resident's interpretation and agree with the findings. DATE: Jul 06, 2014 01:46:00 AM Read by: Olivier Kaiser MD Resident: Olivier Kaiser MD Dictated Date/time: 07/06/14 09:50 Electronically Signed by: Mabel Ortega MD 07/06/14 09:59 FINAL REPORT INDICATION: Respiratory distress COMPARISON: Chest 1 view July 05, 2014 at 0211 hours TECHNIQUE: A single AP view of the chest FINDINGS: Perihilar interstitial and alveolar opacities have slightly improved from the prior exam. The cardiac silhouette is unchanged. The bones and soft tissues are unchanged. Tracheostomy tube is a gain noted. The nasogastric tube has been removed and Dobbhoff tube has been placed. IMPRESSION: 1. Slight clearing of interstitial and airspace opacities likely representing pulmonary edema. 2. Removal of nasogastric tube and placement of Dobbhoff tube CARDIAC Troponin-T null 0.000 - 07/05 [facility] ENZYMES 0.100 [facility] CARDIAC Total CK 465 unit/L - 07/05 [facility] ENZYMES [facility] CARDIAC CK MB Index 1.3 0.0 - 2.5 07/05 [facility] CARDIAC CK MB 6.1 ng/mL 0.5 - 3.6 07/05 [facility] CHEM PANEL Bili 0.4 mg/dL 0.0 - 1.0 07/05 Indirect [facility] CHEM PANEL A/G Ratio 1.4 0.7 - 1.6 07/05 [facility] CHEM PANEL Globulin 2.4 g/dL 2.0 - 4.0 07/05 [facility] CHEM PANEL Bili Direct 0.2 mg/dL 0.0 - 0.3 07/05 [facility] CHEM PANEL AST 60 unit/L 0 - 37 07/05 [facility] CHEM PANEL Bili Total 0.6 mg/dL 0.2 - 1.3 07/05 [facility] CHEM PANEL Alk Phos 73 unit/L 39 - 136 07/05 [facility] CHEM PANEL ALT 58 unit/L 0 - 65 07/05 [facility] CHEM PANEL Albumin Lvl 3.4 g/dL 3.5 - 5.0 07/05 [facility] CHEM PANEL Total 5.8 g/dL 6.4 - 8.4 07/05 [facility] MYOGLOBIN Myoglobin 119 ng/mL 25 - 72 07/05 [facility] CARDIAC Total CK 476 unit/L - 07/05 [facility] CARDIAC Troponin-T null 0.000 - 07/05 [facility] [place] ENZYMES 0.100 [facility] CARDIAC CK MB Index 1.4 0.0 - 2.5 07/05 [facility] CARDIAC CK MB 6.9 ng/mL 0.5 - 3.6 07/05 [facility] CHEM PANEL Globulin 2.4 g/dL 2.0 - 4.0 07/05 [facility] CHEM PANEL Albumin Lvl 3.6 g/dL 3.5 - 5.0 07/05 [facility] CHEM PANEL A/G Ratio 1.5 0.7 - 1.6 07/05 [facility] CHEM PANEL AST 69 unit/L 0 - 37 07/05 [facility] CHEM PANEL Alk Phos 71 unit/L 39 - 136 07/05 [facility] CHEM PANEL ALT 64 unit/L 0 - 65 07/05 [facility] CHEM PANEL Bili Total 0.7 mg/dL 0.2 - 1.3 07/05 [facility] CHEM PANEL Bili Direct 0.2 mg/dL 0.0 - 0.3 07/05 [facility] CHEM PANEL Bili 0.5 mg/dL 0.0 - 1.0 07/05 [facility] CHEM PANEL Total 6.0 g/dL 6.4 - 8.4 07/05 [facility] MYOGLOBIN Myoglobin 166 ng/mL 25 - 72 07/05 [facility] CARDIAC CK MB Index 1.7 0.0 - 2.5 07/05 [facility] CARDIAC CK MB 6.3 ng/mL 0.5 - 3.6 07/05 [facility] CARDIAC Total CK 380 unit/L 12 - 191 07/05 [facility] CARDIAC Troponin-T null 0.000 - 07/05 [place] ENZYMES 0. [facility] CHEM PANEL Globulin 2.2 g/dL 2.0 - 4.0 07/05 [facility] CHEM PANEL Bili Direct 0.2 mg/dL 0.0 - 0.3 07/05 [facility] CHEM PANEL Bili Total 0.4 mg/dL 0.2 - 1.3 07/05 [facility] CHEM PANEL Bili 0.2 mg/dL 0.0 - 1.0 07/05 [facility] CHEM PANEL AST 93 unit/L 0 - 37 07/05 [facility] CHEM PANEL Alk Phos 68 unit/L 39 - 136 07/05 [facility] CHEM PANEL A/G Ratio 1.4 0.7 - 1.6 07/05 [facility] CHEM PANEL Albumin Lvl 3.1 g/dL 3.5 - 5.0 07/05 [facility] CHEM PANEL ALT 68 unit/L 0 - 65 07/05 [facility] CHEM PANEL Total 5.3 g/dL 6.4 - 8.4 07/05 [facility] MYOGLOBIN Myoglobin 218 ng/mL 25 - 72 07/05 [facility]2013 [facility] Foot series Foot series EXAM: FOOT 3 VIEWS 07/05 - - [facility] DATE: Order Observation End Time: Jul 05, 2014 10:31:00 AM Read by: Nino Pineda MD Dictated Date/time: 07/05/14 11:34 Electronically Signed by: Nino Pineda MD 07/05/14 11:35 FINAL REPORT INDICATION: Pain. Trauma TECHNIQUE: AP , lateral and oblique radiographs of the right foot . COMPARISON: None available FINDINGS: No acute bony abnormality is identified. IMPRESSION: No abnormality identified. BACTERIAL - MRSA by PCR Negative 07/05Interpretive Data: Interpretive Data: The [employer] Light[employer]ycler MRSA assay is a qualitative test for the direct detection of nasal colonization with methicillin-resistant Staphylococcus aureus (MRSA) to aid [facility] in the prevention and control of

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
[2018-08-20] MEDS ORDERED: NA CHLORIDE 0.9% 1,000 ML ONE (07:36)
[2018-08-20] MEDS ORDERED: CEFAZOLIN/SWI 1gm 1 GM/10 ML SYR ONE (07:36)
[2018-08-20] MEDS ORDERED: LIDOCAINE 1% MPF 5 ML VIAL ONE (08:06)
[2018-08-20] MEDS ORDERED: PROPOFOL 200 MG/20 ML VIAL IV ONE (08:06)
[2018-08-20] MEDS ORDERED: MIDAZOLAM HCL 2 MG/2 ML INJ ONE (08:06)
[2018-08-20] MEDS ORDERED: FENTANYL CITR 100 MCG/2 ML ONE (08:06)
[2018-08-20] MEDS ORDERED: LIDOCAINE 1.5% W/EPI AMP 5 ML ONE (08:18)
[2018-08-20] MEDS ORDERED: BUPIVACA 0.25%/EPI 0.0005% MDV 50 ML VIAL ONE (08:18)
--- NOTE | 2018-08-20 08:59 | P.OP ---
Preoperative diagnosis: LEFT scalp cyst Postoperative diagnosis: LEFT scalp lipoma Primary procedure: Excision of LEFT scalp Lipoma Anesthesia: MAC + Local Estimated blood loss: <5cc Specimen: lipomatous mass ~3cm in size Findings: left scalp lipoma, to dona Complications: None Transferred to: Recovery Room Condition: Good
[2018-08-20] MEDS ORDERED: KETOROLAC 30 MG/ML INJ ONE (10:30)
[2018-08-20] MEDS ORDERED: ONDANSETRON 4 MG/2 ML VIAL ONE (10:32)
--- NOTE | 2018-08-20 20:40 | OP ---
Date of Procedure: 08/20/2018 Surgeon: Mike Salinas MD, Preoperative Diagnosis: Left scalp cyst. Postoperative Diagnosis: Left scalp lipoma. Procedure: Excision of left scalp lipoma. Anesthesia: MAC plus local with 0.25% Marcaine with epinephrine. Estimated Blood Loss: Less than 5 cc. Specimen: Lipomatous mass approximately 3 cm in size extending to the galea. Findings: Left scalp lipoma extending to galea approximately 3 cm in size. Complications: None. Disposition: Transferred to Recovery in good condition. Procedure In Detail: After informed consent was obtained, the patient was brought to the operating r oom, prepped and draped in the usual sterile fashion. After adequate anesthesia was achieved, an are a of the left frontotemporal scalp was examined, found to have approximately a 3 cm lipomatous mass. This area was anesthetized with 0.25% Marcaine with epinephrine, sharply incised down through the monroy bcutaneous tissues and circumferentially dissected around using needle-tip cautery on a low setting o f 15 and low oxygen to reduce fire risk. I circumferentially dissected down using both blunt and sha rp dissection to expose this lipomatous mass down to the galea. It was then removed in its entirety, sent off for pathologic examination. The area was copiously irrigated and hemostasis was achieved w ith electrocautery. The area was inspected and irrigated one last time, had to be completely dry. A fter this was done, the area was inspected one last time. Good hemostasis was achieved and the skin was then closed with a 4-0 Monocryl in a running fashion. Dermabond placed on top. The patient tole rated the procedure without evidence of complication, transferred to the PACU in good condition. All counts were correct at the end of the case. DAYANA/ISABEL Voice ID: [id number] Report ID: [id number]
== END 2018-08-20 09:45 | disposition home or self-care (01) ==
LOC: OR 07:07
PROVIDERS: ATTEND Surgery
PROC: 0JB00ZZ Excision of Scalp Subcutaneous Tissue and Fascia, Open Approach (ICD-10-PCS; principal; 2018-08-20 08:30)
DX: D17.0 Benign lipomatous neoplasm of skin and subcutaneous tissue of head, face and neck (principal); I10 Essential (primary) hypertension; K21.9 Gastro-esophageal reflux disease without esophagitis; F41.8 Other specified anxiety disorders; M54.12 Radiculopathy, cervical region; F17.210 Nicotine dependence, cigarettes, uncomplicated; Z79.899 Other long term (current) drug therapy
CPT/HCPCS: 82962; 88304; J0690; J2001; J2250; J2405; J2704; J3010; J7030